=== PATIENT | male | born 1950 | race Caucasian/White ===

== ENCOUNTER 2023-10-05 05:26 | Day surgery (SDC) | payer MEDICARE ==
[2023-10-02 15:20] LABS: BASOPHILS # (AUTO) 0.1 X10'3 (0-0.2); BASOPHILS % (AUTO) 0.9 % (0-1); EOSINOPHILS # (AUTO) 0.1 X10'3 (0-0.9); EOSINOPHILS % (AUTO) 1.9 % (0-6); LYMPHOCYTES # (AUTO) 1.5 X10'3 (1.1-4.8); LYMPHOCYTES % (AUTO) 21.6 % (21-51); MEAN CORPUSCULAR HEMOGLOBIN 30.8 PG (27.0-31.0); MEAN CORPUSCULAR VOLUME 90.6 FL (78-98); MEAN PLATELET VOLUME 8.2 FL (7.4-10.4); MONOCYTES # (AUTO) 0.6 X10'3 (0-0.9); NEUTROPHILS # (AUTO) 4.7 X10'3 (1.8-7.7); NEUTROPHILS % (AUTO) 67.6 % (42-75); PRE OP HEMATOCRIT 31.4 % (42.0-52.0); PRE OP PLATELET COUNT 186 X10'3 (140-440); PRE OP WHITE BLOOD COUNT 6.9 10'3 (4.8-10.8); RED BLOOD COUNT 3.46 X10'6 (4.70-6.10); RED CELL DISTRIBUTION WIDTH 13.8 % (11.5-14.5)
[2023-10-02 15:24] LABS: PRE OP HEMOGLOBIN 10.7 g/dL (14.0-17.9)
[2023-10-02 15:42] LABS: ALBUMIN 3.4 G/DL (3.4-5.0); ALBUMIN/GLOBULIN RATIO 0.9 (1.1-1.5); ALKALINE PHOSPHATASE 23 IU/L (46-116); BLOOD UREA NITROGEN 56 MG/DL (7-18); BUN/CREATININE RATIO 18.6 (10.0-20.0); CALCIUM 8.7 MG/DL (8.5-10.1); CHLORIDE 107 MMOL/L (99-107); CREATININE 3.01 MG/DL (0.60-1.10); PRE OP ALT 30 U/L (30-65); PRE OP ANION GAP 11 (8-16); PRE OP AST 18 U/L (10-37); PRE OP BILIRUB, TOTAL 0.3 MG/DL (0.0-1.0); PRE OP GLUCOSE 173 MG/DL (70-104); PRE OP SODIUM 139 MMOL/L (135-145); TOTAL CARBON DIOXIDE 20.9 MMOL/L (24-32); eGFR 21 ML/MIN
[2023-10-05] VITALS (8 sets, daily range): BP systolic 106–147; BP diastolic 49–74; PULSE 57–62; RESP 11–16; TEMP 98.3; O2SAT 62–99
[~2023-10-05] VITALS: Ht 172.7 cm; Wt 94.4 kg
[~2023-10-05 05:26] MED LIST: ALBU18HF2 INH; ASPI-611 PO; CARV25TA2 PO; DAPA10TA PO; FENO145T25 PO; FLO0.4C; FLUT1BLS16 INH; GLIM4TAB7 PO; INSU3INS2 SQ; LEVO50TA8 PO; LISI40TA13 PO; MINO10TA16 PO; NIFE90TA70 PO; ONDA-103 PO; PRAV80TA3 PO; SPIR25TA5 PO; ceFAZolin 1GM/D5W- ADD-VANTAGE 50 ML IV PRN
[2023-10-05] MEDS ORDERED: CEFAZOLIN IV PRN (05:30)
[2023-10-05] MEDS ORDERED: DOCUMENT DATE & TIME OF BETA-BLOCKER PO ONE (05:30)
[2023-10-05] MEDS: normal saline 1000ml 500 ML IV SCH ×2 (05:30→06:12)
[2023-10-05] MEDS ORDERED: NORMAL SALINE IV PRN (05:30)
[2023-10-05] MEDS ORDERED: famotidine 20mg tablet PO ONE (05:30)
[2023-10-05] MEDS: ceFAZolin 1GM/D5W- ADD-VANTAGE 50 ML IV PRN ×2 (05:46→06:11)
[2023-10-05] MEDS ORDERED: normal saline 500ml IV soln 500 ML IV SCH (06:30)
[2023-10-05] MEDS ORDERED: LIDOcaine 1% (10mg/ml)w/preservative inj. 20ml MDV ONE (06:42)
[2023-10-05] MEDS ORDERED: BUPIVAcaine HCl 0.25%/EPInephrine 1:200,000 inj. 10 ML VIAL ONE (06:43)
[2023-10-05] MEDS ORDERED: BUPIVAcaine/PF 2.5mg/ml (0.25%) 10ml vial ONE (06:43)
[2023-10-05] MEDS ORDERED: HYDROmorphone/PF 0.2 MG/ML SYRINGE IV PRN ×2 (07:20)
[2023-10-05] MEDS ORDERED: labetalol 20mg/4ml (5mg/ml) syringe IV PRN (07:20)
[2023-10-05] MEDS ORDERED: meperidine/PF 25mg/ml syringe IV PRN ×3 (07:20)
[2023-10-05] MEDS ORDERED: ringers solution, lacted 1,000 ML IV SCH (07:20)
[2023-10-05] MEDS ORDERED: ondansetron/PF 4mg/2ml inj IV PRN (07:20)
[2023-10-05] MEDS ORDERED: acetaminophen 1,000mg/100ml IV 100 ML IV ONE (07:20)
[2023-10-05] MEDS ORDERED: fentaNYL/PF 50MCG/1 ML 2ML syringe ONE (07:44)
[2023-10-05] MEDS ORDERED: midazolam 1 mg/ML 2ml injection ONE (07:46)
[2023-10-05] MEDS ORDERED: BUPIVAcaine/PF 2.5mg/ml (0.25%) 10ml vial IJ ONE (08:10)
[2023-10-05] MEDS ORDERED: dexamethasone sod phosphate 4mg/ml inj. ONE (08:14)
[2023-10-05] MEDS ORDERED: ondansetron/PF 4mg/2ml inj ONE (08:14)
[2023-10-05] MEDS ORDERED: propofol inj 20 ML IV ONE (08:14)
== END 2023-10-05 09:56 | disposition home or self-care (01) ==
LOC: PAS 05:26
PROVIDERS: ATTEND Surgery
DX: N62 Hypertrophy of breast (principal); E11.22 Type 2 diabetes mellitus with diabetic chronic kidney disease; I12.9 Hypertensive chronic kidney disease with stage 1 through stage 4 chronic kidney disease, or unspecified chronic kidney disease; N18.4 Chronic kidney disease, stage 4 (severe); J44.9 Chronic obstructive pulmonary disease, unspecified; M19.90 Unspecified osteoarthritis, unspecified site; G47.30 Sleep apnea, unspecified; E66.9 Obesity, unspecified; Z68.31 Body mass index [BMI] 31.0-31.9, adult; Z79.84 Long term (current) use of oral hypoglycemic drugs; Z79.899 Other long term (current) drug therapy; Z88.5 Allergy status to narcotic agent
CPT/HCPCS: 19300; 36415; 80053; 85025; J0131; J0690; J1100; J2175; J2250; J2405; J2704; J3010; J3490; J7030; J7040; J7120; Z7506; Z7512; A4215; A4618; A6449; A7000